=== PATIENT | female | born 1945 | race Caucasian/White ===

== ENCOUNTER 2019-01-07 13:40 | Outpatient (CLI) | payer MEDICARE ==
[~2019-01-07 13:40] MED LIST: Iopamidol 370 76% 100 ML VIAL ONE
--- NOTE | 2019-01-07 14:34 | CT ---
CT THORAX WITH CONTRAST: DATE: 01/07/2019 HISTORY: 73-year-old female with chest pain FINDINGS: No pulmonary edema, focal infiltrate, mass, bolus disease, pleural effusion, pneumothorax, mediastina l lymphadenopathy, or hilar lymphadenopathy. No cardiomegaly or pericardial effusion. Mild atherosclerotic calcification of thoracic aorta. No thoracic aortic aneurysm or dissection. Thoracic vertebral body heights are maintained with no compression fracture or high-grade central spinal canal stenosis. IMPRESSION: Negative
== END 2019-01-07 13:41 | disposition home or self-care (01) ==
LOC: BICCT 13:40
PROVIDERS: ATTEND Internal Medicine Cardiovascular Disease
DX: M54.6 Pain in thoracic spine (principal)
CPT/HCPCS: 71260; 82565; Q9967

== ENCOUNTER 2019-10-22 09:03 | Outpatient (CLI) | payer MEDICARE ==
--- NOTE | 2019-10-22 10:05 | ULT ---
GALLBLADDER ULTRASOUND: Date: 10/22/2019 HISTORY: Right upper quadrant pain. FINDINGS: The liver, gallbladder, pancreas, and right kidney appear normal. The common duct measures 3.0 mm in diameter. No free fluid is seen in Morison's pouch. IMPRESSION: Normal exam. POS: [facility]
== END 2019-10-22 09:04 | disposition home or self-care (01) ==
LOC: BICULT 09:03
PROVIDERS: ATTEND Internal Medicine Gastroenterology
DX: R10.11 Right upper quadrant pain (principal)
CPT/HCPCS: 76705